=== PATIENT | male | born 1955 | race African-American/Black ===

== ENCOUNTER 2017-07-19 14:23 | Inpatient (IN) | payer MEDICARE, OTHER ==
--- NOTE | 2017-07-19 14:42 | ED Physician Chart ---
ED Chief Complaint/HPI - Patient Information Date Seen:: 07/19/17 Time Seen:: 14:30 Chief Complaint:: Agitation History of Present Illness:: onset x 3 days of agitation and aggressive behavior; no report of trauma, SIs, H /As, S/T, neck pain, C/P, SOB, Abd. pain, A/N/V/D/C, fever, chills, or urinary s /s Allergies:: Allergies Allergy/AdvReac Type Severity Reaction Status Date / Time No Known Allergies Allergy Verified 07/19/17 14:31 Vitals:: Vital Signs - 8 hr 07/19/17 14:31 Temp 98.3 F HR 83 RR 18 BP 141/73 O2 Sat % 100 Historian:: Patient, EMS Review:: Nurse's Note Reviewed, Old Chart Reviewed, EMS run form Reviewed ED Review of Systems - Review of Systems General/Constitutional: No fever, No chills, No weight loss, No weakness, No diaphoresis, No edema, No loss of appetite Skin: No skin lesions, No rash, No bruising Head: No headache, No light-headedness Eyes: No loss of vision, No pain, No diplopia ENT: No earache, No nasal drainage, No sore throat, No tinnitus Neck: No neck pain, No swelling, No thyromegaly, No stiffness, No mass noted Cardio Vascular: No chest pain, No palpitations, No PND, No orthopnea, No edema Pulmonary: No SOB, No cough, No sputum, No wheezing GI: No nausea, No vomiting, No diarrhea, No pain, No melena, No hematochezia, No constipation, No hematemesis G/U: No dysuria, No frequency, No hematuria, No nacturia Musculoskeletal: No bone or joint pain, No back pain, No muscle pain Endocrine: No polyuria, No polydipsia Psychiatric: Prior psych history, Depression, Anxiety, No suicidal ideation, No homicidal ideation, No auditory hallucination, No visual hallucination Hematopoietic: No bruising, No lymphadenopathy Allergic/Immuno: No urticaria, No angioedema Neurological: No syncope, No focal symptoms, No weakness, No paresthesia, No headache, No seizure, No dizziness, No confusion, No vertigo ED Past Medical History - Past Medical History Obtainable: Yes Past Medical History: HTN, Dyslipidemia Family History: HTN Social History: Non Smoker, No Alcohol, No Drug Use, Single, Care Facility Surgical History: None Psychiatricy History: Depression, Bipolar Medication: Reviewed Family Medical History - Family Member Mother History Unknown: Yes ED Physical Exam - Physical Examination General/Constitutional: Awake, Well-developed, well-nourished, Alert, No distress, GCS 15, Non-toxic appearing, Ambulatory Head: Atraumatic Eyes: Lids, conjuctiva normal, PERRL, EOMI Skin: Nl inspection, No rash, No skin lesions, No ecchymosis, Well hydrated, No lymphadenopathy ENMT: External ears, nose nl, TM canals nl, Nasal exam nl, Lips, teeth, gums nl , Oropharynx nl, Tonsils nl Neck: Nontender, Full ROM w/o pain, No JVD, No nuchal rigidity, No bruit, No mass, No stridor Respiratory: Nl effort/Exclusion, Clear to Auscultation, No Wheeze/Rhonchi/Rales Cardio Vascular: RRR, No murmur, gallop, rubs, NL S1 S2, Carotid/Femoral/Distal pulses equal bilaterally GI: No tenderness/rebounding/guarding, No organomegaly, No hernia, Normal BS's, Nondistended, No mass/bruits, No McBurney tenderness : No CVA tenderness Extremities: No tenderness or effusion, Full ROM, normal strength in all extremities, No edema, Normal digits & nails Neuro/Psych: Alert/oriented, DTR's symmetric, Normal sensory exam, Normal motor strength, Judgement/insight normal, Mood normal, Normal gait, No focal deficits Other Neuro/Psych comments:: + Psychomotor Agitation; Mood/Affect: Labile; no SIs Misc: Normal back, No paraspinal tenderness ED Labs/Radiology/EKG Results - Lab Results Comments:: + Anemia; otherwise unremarkable - EKG Interpretations EKG Time:: 14:54 Rate & Rhythm: 79; NSR Comments:: LVH; non-specific st-t changes ED Septic Shock - . Is Septic Shock (SBP<90, OR Lactate>4 mmol\L) present?: No - <6hrs of presentation: Vital Signs: Vital Signs - 8 hr 07/19/17 14:31 Temp 98.3 F HR 83 RR 18 BP 141/73 O2 Sat % 100 ED Reassessment (Disposition) - Reassessment Reassessment Condition:: Improved - Diagnosis Diagnosis:: Dx: Agitation; Psychosis; Anemia; Medical Clearance; Bipolar Disorder - Aftercare/Follow up Instructions Aftercare/Follow-Up Instructions:: Counseled pt regarding lab results/diagnosis & need follow up, Counseled pt & family regarding lab results/diagnosis & need follow up - Patient Disposition Discharge/Transfer:: Acute Care w/in this hosp Admitted to:: [facility] Condition at Disposition:: Stable, Improved
[2017-07-19 14:59] LABS: % BASOPHILS 0.5 % (0.0-2.0); % EOSINOPHILS 0.5 % (0.0-5.0); % LYMPHOCYTES 20.7 % (20.0-50.0); % MONOCYTES 14.9 % (2.0-10.0); % NEUTROPHILS 63.4 % (40.0-80.0); HEMOGLOBIN 9.2 gm/dL (12-16); LYMPHOCYTE ABSOLUTE 1.2 Th/cmm (1.5-3.0); MEAN CELL VOLUME 88.7 fl (80-99); MEAN CORPUSCULAR HGB CONC 32.7 pg (28.0-36.0); MEAN PLATELET VOLUME 6.7 fl; MONOCYTE ABSOLUTE 0.8 Th/cmm (0.3-1.0); NEUTROPHILE ABSOLUTE 3.7 Th/cmm (1.8-8.0); PLATELET COUNT 321 Th/cmm (150-400); RED BLOOD COUNT 3.16 Mil/cmm (4.30-5.70); RED CELL DISTRIBUTION WIDTH 14.3 % (11.5-20.0); WHITE BLOOD COUNT 5.7 Th/cmm (4.8-10.8)
[2017-07-19 15:21] LABS: ACETAMINOPHEN < 10.0 ug/mL (10.0-30.0); ALB/GLOB RATIO 0.9 (1.0-1.8); ALBUMIN 3.2 gm/dL (4.2-5.5); ALKALINE PHOSPHATASE 138 U/L (34-104); ANION GAP 9.7 (7.0-16.0); BILIRUBIN,TOTAL 0.3 mg/dL (0.3-1.0); BUN - UREA NITROGEN 15 mg/dL (7-25); CALCIUM SERUM 9.1 mg/dL (8.6-10.3); CARBON DIOXIDE 30.1 mEq/L (21.0-31.0); CHLORIDE 102 mEq/L (98-107); CHOLESTEROL 157 mg/dL (<200); CREATININE - SERUM 0.6 mg/dL (0.7-1.3); GFR AFRICAN-AMERICAN > 60.0 ml/min (>90); GFR NON AFRICAN-AMERICAN > 60.0 ml/min; GLUCOSE 79 mg/dL (70-105); HDL -HIGH DENSITY LIPOPROTEIN 59 mg/dL (23-92); POTASSIUM SERUM 3.8 mEq/L (3.5-5.1); SGOT 14 U/L (13-39); SGPT/ALT 22 U/L (7-52); SODIUM SERUM 138 mEq/L (136-145); TOTAL PROTEIN,SERUM 6.7 gm/dL (6.0-8.3); TRIGLYCERIDES 78 mg/dL (<150)
[2017-07-19 15:25] LABS: SALICYLATES (ASPIRIN) < 25.0 mg/L (30.0-100.0)
[2017-07-19 16:12] LABS: A1C % 11.7 % (4.0-6.0)
[2017-07-19 16:49] LABS: URINE MICROSCOPIC INDICATED? YES; URINE SOURCE CLEAN C
[2017-07-19 16:53] LABS: URINE BILIRUBIN NEGATIVE (NEGATIVE); URINE BLOOD NEGATIVE (NEGATIVE); URINE GLUCOSE (UA) 500 mg/dL (NEGATIVE); URINE KETONE NEGATIVE (NEGATIVE); URINE LEUKOCYTE ESTERASE NEGATIVE (NEGATIVE); URINE NITRATE NEGATIVE (NEGATIVE); URINE PROTEIN NEGATIVE (NEGATIVE); URINE UROBILINOGEN 0.2 E.U./dL (0.2 - 1.0)
[2017-07-19 17:01] LABS: URINE CLARITY CLEAR (CLEAR); URINE COLOR YELLOW
[2017-07-19 17:04] LABS: URINE BACTERIA NONE SEEN /hpf (NONE SEEN); URINE EPITHELIAL CELLS NONE SEEN /lpf (FEW); URINE RBC NONE SEEN /hpf (0-5); URINE WBC NONE SEEN /hpf (0-5)
[2017-07-19 17:12] LABS: AMPHETAMINE URINE NEGATIVE (NEGATIVE); BARBITURATES URINE NEGATIVE (NEGATIVE); CANNABINOID THC NEGATIVE (NEGATIVE); COCAINE METABOLITE QUAL URINE NEGATIVE (NEGATIVE); METHADONE URINE NEGATIVE (NEGATIVE); METHAMPHETAMINES QUAL URINE NEGATIVE (NEGATIVE); OPIATES (MORPHINE) QUAL. URINE NEGATIVE (NEGATIVE); PHENCYCLIDINE (PCP) URINE NEGATIVE (NEGATIVE); TRICYCLICS (TCA) QUAL. URINE NEGATIVE (NEGATIVE)
[2017-07-19 17:13] LABS: BENZODIAZEPINES QUAL URINE POSITIVE (NEGATIVE)
[2017-07-19 18:07] VITALS: BP 127/68
[2017-07-19] MEDS ORDERED: Magnesium Hydroxide (MOM) 30 mL UDC PO PRN (20:25)
[2017-07-19] MEDS: Insulin Detemir 100 units/mL 10mL Vial SUBQ SCH (21:23)
[2017-07-20] MEDS: INSULIN HUMAN ISOPHANE (NPH) 100 UNITS/ML SUBQ SCH (06:42)
--- NOTE | 2017-07-20 21:09 | Psychosocial Evaluation ---
DATE OF SERVICE: 07/20/2017 CHIEF COMPLAINT: Psychotic illness. HISTORY OF PRESENT ILLNESS: The patient is a 62-year-old male who was sent from his facility for increased agitation, anger outburst, started to have more yelling episodes for the past 3-4 days, difficult to redirect. The patient was evaluated in the ER and admitted now currently on psychiatric unit. The patient was asking about food and said sometimes does not like the food. The patient was apparently threatening to kill people, said people do not bother him and he wants to be left alone. The patient talked about being in a board and care for many years and now is in a long term facility. He said he is not sure if he likes that place. PAST PSYCHIATRIC HISTORY: Multiple hospitalizations, history of schizophrenia. PAST MEDICAL HISTORY: Medically cleared in the ER. PSYCHOSOCIAL HISTORY: The patient resides at [facility] and he requires complete care. MENTAL STATUS EXAMINATION: The patient is slightly disheveled, dressed in a hospital gown. His speech is monotonous, loud at times. Affect is dysphoric, irritable. The patient appears to be paranoid, suspicious. Insight poor. Judgment is impaired. He is oriented to person being in the hospital, not sure about his age. He thought he was 61-year-old. Did not know the time. The patient's strengths: The patient is passively accepting treatment. The patient's weakness is lack of insight. ASSESSMENT: Schizophrenia, paranoid type, acute exacerbation. MEDICAL: As per medical history, stress is severe. PLAN: We will admit the patient for hospitalization. We will start individual and group therapy to assess psychopharmacological intervention. ESTIMATED LENGTH OF STAY: 7-10 days. CRITERIA FOR DISCHARGE: Improved condition. No agitation or aggressive behavior and safe disposition, outpatient treatment plan. JOB# [id number]
[2017-07-20] MEDS: Insulin Detemir 100 units/mL 10mL Vial SUBQ SCH (22:01)
[2017-07-20] MEDS ORDERED: INSULIN ASPART SLIDING SCALE 100 UNITS/ML UNIT SUBQ SCH (22:28)
[2017-07-21] MEDS: INSULIN ASPART SLIDING SCALE 100 UNITS/ML UNIT SUBQ SCH ×4 (07:15→21:34)
[2017-07-21] MEDS ORDERED: INSULIN ASPART SLIDING SCALE 100 UNITS/ML UNIT SUBQ SCH (07:30)
[2017-07-21] MEDS: INSULIN HUMAN ISOPHANE (NPH) 100 UNITS/ML SUBQ SCH (08:37)
--- NOTE | 2017-07-21 17:42 | Progress Notes ---
DATE: 07/21/2017 SUBJECTIVE: Staff was spoken to. The patient is interviewed. Mood is noted to be irritable. Affect is constricted. Insight and judgment is noted to be still impaired. Impulse control is poor. The patient is disheveled and pacing most of the time in the unit. The patient has finished his lunch, but still complains that he has not been fed and patient wants more and more medications. ASSESSMENT: The patient is still impulsive and psychotic. PLAN: To continue the patient with the supportive therapy and I encouraged the patient to verbalize the concerns rather than to act out. JOB# [id number]
[2017-07-21] MEDS ORDERED: INSULIN GLARGINE RECOMBINAN SUBQ SCH (21:00)
[2017-07-21] MEDS: Insulin Detemir 100 units/mL 10mL Vial SUBQ SCH (21:36)
--- NOTE | 2017-07-22 01:47 | Consultation ---
DATE OF CONSULTATION: 07/21/2017 REFERRING PHYSICIAN: Rinku Blackman MD TYPE OF CONSULTATION: Psychology. HISTORY OF PRESENT ILLNESS: The patient is a 62-year-old -[place] male. The patient is being admitted due to increased agitation as well as anger outbursts. The following is by record review and by the patient's self report. According to record review, the staff at the patient's facility report that he has had multiple yelling episodes for approximately 3-4 days and is difficult to redirect or contain. The patient apparently has been threatening to kill people and wants to be left alone. The patient stated that he has been in a board and care for many years and does not want to be in a long term. The patient appears to be confused and disoriented. The patient denied any suicidal ideation, plan or intention. The patient was unable to contract for safety with respect to homicidal ideation, plan or intention. PAST MEDICAL HISTORY: Please see history and physical. PAST PSYCHIATRIC HISTORY: The patient has a history of multiple hospitalizations. The patient also has a history of schizophrenia, chronic paranoid type. SUBSTANCE ABUSE HISTORY: The patient did not answer this question. PSYCHOSOCIAL HISTORY: The patient is a resident of [facility]. The patient did not answer questions about occupational or educational history or yarsanism affiliation. The patient did not answer questions about history of physical or sexual abuse. The patient did not answer questions about current legal problems. The patient did not answer questions about family support or family relationships. MENTAL STATUS EXAMINATION: The patient appears older than his stated age. The patient's attitude is guarded, but somewhat confused. The patient's eye contact seems to be blank. The patient is staring directly at this senior grant writer with no expression during the clinical interview. Speech is slow and delayed and mumbling. Mood is apathetic. Affect is blunted and appears almost catatonic. The patient 's mood is depressed and somewhat irritable. There seems to be paranoid ideation present. The patient denied any auditory or visual hallucinations. The patient denied any suicidal ideation. The patient's behavior has been difficult to redirect. The staff on the unit states the patient is pacing the unit and wandering into other patient's rooms and needs constant redirection. The patient's sensorium is alert to self and place only. The patient's impulse control is impaired. Concentration is impaired. The patient did not participate in the memory assessment. Immediate and short term memory appear to be impaired. Long-term memory needs further evaluation. The patient was unable to give his correct age and date of . The patient did not participate in the interpretation of proverbs or the rest of the clinical interview. Insight is impaired. Judgment is impaired. DIAGNOSTIC IMPRESSION: AXIS I: History of schizophrenia, chronic paranoid type, in acute exacerbation. AXIS II: Deferred. AXIS III: Please see history and physical. TREATMENT PLAN: The patient has been seen by Dr. Blackman for psychiatric evaluation and for the management of the patient's psychotropic medications. We will start individual and group therapy to include supportive psychotherapy and motivational enhancement for the patient to become compliant and stay compliant with all aspects of his care and treatment. We will provide behavioral management with respect to the patient's agitation and aggressive behavior. We will encourage the patient to demonstrate emotional and self-regulation prior to discharge. We will provide reality orientation, reality differentiation and reality integration. We will provide coping strategies for chronic long-term mental illness as well as for phase of life issues and adjustment to placement because the patient has a desire to return to a board and care. We will consult with social sciences instructor with respect to the patient's desire to return to that type of environment. We will provide opportunities daily for the patient to verbally contract for safety and no harm to others. Thank you, Dr. Blackman for this consult and the opportunity to participate with you in this patient's care. JOB# [id number] CHELI
[2017-07-22] MEDS ORDERED: Maalox 30 mL Cup PO PRN (07:15)
[2017-07-22] MEDS: INSULIN ASPART SLIDING SCALE 100 UNITS/ML UNIT SUBQ SCH ×4 (07:48→20:42)
[2017-07-22] MEDS: INSULIN HUMAN ISOPHANE (NPH) 100 UNITS/ML SUBQ SCH (07:48)
--- NOTE | 2017-07-22 12:49 | Progress Notes ---
DATE: 07/21/2017 SUBJECTIVE: The patient is asleep. The patient has no other complaints. The patient is in Geropsych Unit. PHYSICAL EXAMINATION: VITAL SIGNS: Temperature 98.2, pulse 90, blood pressure 135/76, respiration 20, O2 sat 98% on room air. CARDIOVASCULAR: S1 and S2 is clear. RESPIRATORY: Clear. LABORATORY DATA: No labs for today. ASSESSMENT: 1. Psychosis. 2. Anemia. 4. Diabetes mellitus, controlled. 5. Depression and bipolar disorder. PLAN: Continue current medications. Further per consult. JOB# [id number] MTDD
--- NOTE | 2017-07-22 12:49 | History & Physical ---
ADMIT DATE: 07/19/2017 CHIEF COMPLAINT: Agitated. HISTORY OF PRESENT ILLNESS: The patient is a male who has possible 3 days of agitation and aggressive behavior. The patient was transferred to [facility] for further evaluation. PAST MEDICAL HISTORY: Hypertension, dyslipidemia, depression, bipolar disorder. PAST SURGICAL HISTORY: Negative. MEDICATIONS: See MAR. ALLERGIES: No known allergies. SOCIAL HISTORY: No reports of smoking or drug use. The patient is a resident of care home facility. PHYSICAL EXAMINATION: GENERAL: The patient is awake, nontoxic in appearance. VITAL SIGNS: On admission, temperature 98.3, pulse 83, blood pressure 140/73, respiratory rate 18, O2 sat 100% on room air. HEENT: Normocephalic, atraumatic. Extraocular movements intact. Oropharynx clear. NECK: Supple, no thyromegaly. CARDIOVASCULAR: S1, S2 RESPIRATORY: Clear. No wheezes or rhonchi. GASTROINTESTINAL: Soft, nontender. Bowel sounds are present. GENITOURINARY: No CVA tenderness or suprapubic tenderness. BACK: No midline tenderness. EXTREMITIES: Equal pulses bilaterally. SKIN: Negative. NEUROLOGIC: Intact. Extraocular movements are intact. Sensation intact. Neurovascular is intact. Bilateral muscle strengths equal. PSYCHIATRIC: Psychomotor agitation. LABORATORY DATA: Labs on admission, Hematology: WBC 5.7, hemoglobin 11.2 and hematocrit 28.0, platelet count of 161, 40% monocytes. Chemistry: Sodium 138, potassium 3.8, chloride 102, bicarbonate 28, anion gap 7.7, BUN 15, creatinine 0.6, GFR 160, glucose 79. Hemoglobin A1c per labs, calcium 9.1, total bilirubin 0.3, AST is 14, ALT 22, alkaline phosphatase is 138, total protein 7.7, albumin 3.2, globulin 3.5, glucose 78, cholesterol 157, LDL of 93, HDL 59 Urinalysis shows glucose. Urine drug screen positive for benzodiazepines Alcohol less than 10. RPR nonreactive. IMPRESSION: 1. Agitation. 2. Psychosis. 3. Anemia. 4. Diabetes mellitus, controlled. 6. obese. 7. Hypertension. 8. Dyslipidemia. 9. Depression. 10. Bipolar disorder. PLAN: The patient admitted to Geropsychiatric unit at [facility]. We will obtain psychology evaluation. Further consult. JOB# [id number] [facility]
[2017-07-22] MEDS ORDERED: Haloperidol Lactate 5 mg/mL 1mL Vial ONE (13:48)
[2017-07-22] MEDS ORDERED: Haloperidol Lactate 5 mg/mL 1mL Vial IM STA (13:48)
--- NOTE | 2017-07-22 14:07 | Progress Notes ---
DATE: 07/22/2017 SUBJECTIVE: Staff was spoken to. The patient is interviewed. Mood is noted to be irritable. Affect is constricted. Insight and judgment at this time are noted to be still impaired. The patient is pacing on the unit constantly and is stating that he is hungry, he needs to be on more and more of the medication, also, the food. The patient has no insight into his illness. The patient is grossly psychotic and he is responding to internal stimuli and hence it is decided to increase the dose on the risperidone to 2 mg and follow the patient with the supportive therapy. The patient is not ready to be discharged to a lower level of care because of his psychosis. JOB# [id number]
[2017-07-22] MEDS: Insulin Detemir 100 units/mL 10mL Vial SUBQ SCH (20:43)
[2017-07-23] MEDS: INSULIN ASPART SLIDING SCALE 100 UNITS/ML UNIT SUBQ SCH ×4 (07:12→20:22)
[2017-07-23] MEDS: INSULIN HUMAN ISOPHANE (NPH) 100 UNITS/ML SUBQ SCH (08:49)
[2017-07-23] MEDS: Insulin Detemir 100 units/mL 10mL Vial SUBQ SCH (20:24)
--- NOTE | 2017-07-23 23:55 | Progress Notes ---
DATE: 07/22/2017 SUBJECTIVE: The patient is awake. The patient is in Geropsych Unit at [facility]. The patient's mood is irritable. The patient's affect is constricted. The patient's insight and judgment are noticed to be still impaired. The patient is still grossly psychotic. The patient's risperidone has been increased to 2 mg. PHYSICAL EXAMINATION: VITAL SIGNS: Temperature 98, pulse 99, blood pressure 120/72, respiration 20, O2 98% on room air. CARDIOVASCULAR: S1 and S2. RESPIRATORY: Clear. GASTROINTESTINAL: Soft. Positive bowel sounds. LABORATORY DATA: No labs for today. MICROBIOLOGY: MRSA screening from 07/19/2017 was negative. ASSESSMENT: 1. History of schizophrenia, chronic paranoid type with acute exacerbation. 2. Hypertension. 3. Dyslipidemia. 4. Diabetes mellitus. 5. Obesity. PLAN: Continue medication. The patient is refusing labs. Further recommendation as per consults. JOB# [id number]
--- NOTE | 2017-07-24 00:22 | Progress Notes ---
DATE: 07/23/2017 SUBJECTIVE: Staff was spoken to. The patient is interviewed. Mood is noted to be irritable. Affect is constricted. The patient has been getting into other people's rooms. The patient needs to be redirected. The patient is currently on 2 mg twice a day of the risperidone and has been able to tolerate the medications. This medication was just increased yesterday and will be closely monitoring the patient with this medication. PLAN: I encouraged the patient to verbalize the concerns rather than to act out. The patient is not ready to be discharged in view of his acute psychosis. JOB# [id number]
--- NOTE | 2017-07-24 00:33 | Progress Notes ---
DATE: 07/23/2017 SUBJECTIVE: The patient is awake. The patient is still in Geropsych Unit. Upon psychiatric evaluation, the patient is still grossly psychotic. PHYSICAL EXAMINATION: VITAL SIGNS: Temperature 97.5, pulse 90, blood pressure 112/59, respirations 20, O2 sat was 98% on room air. CARDIOVASCULAR: S1 and S2. RESPIRATORY: Clear. GASTROINTESTINAL: Soft. Positive bowel sounds. LABORATORY DATA: Labs, fasting glucose 312. ASSESSMENT: 1. Schizophrenia, paranoid type with acute exacerbation. 2. Hypertension. 3. Dyslipidemia. 4. Diabetes mellitus. PLAN: Continue medication. We will attempt to obtain labs again tomorrow. Further recommendations per psychiatric services. JOB# [id number]
[2017-07-24] MEDS: INSULIN ASPART SLIDING SCALE 100 UNITS/ML UNIT SUBQ SCH ×4 (06:31→20:20)
[2017-07-24] MEDS: INSULIN HUMAN ISOPHANE (NPH) 100 UNITS/ML SUBQ SCH (06:32)
[2017-07-24 06:51] LABS: % BASOPHILS 0.4 % (0.0-2.0); % EOSINOPHILS 0.7 % (0.0-5.0); % NEUTROPHILS 60.9 % (40.0-80.0); HEMATOCRIT 27.7 % (41.0-60); HEMOGLOBIN 9.4 gm/dL (12-16); LYMPHOCYTE ABSOLUTE 1.5 Th/cmm (1.5-3.0); MEAN CELL VOLUME 88.3 fl (80-99); MEAN CORPUSCULAR HEMOGLOBIN 29.9 pg (26.0-30.0); MEAN CORPUSCULAR HGB CONC 33.9 pg (28.0-36.0); MONOCYTE ABSOLUTE 0.8 Th/cmm (0.3-1.0); NEUTROPHILE ABSOLUTE 3.6 Th/cmm (1.8-8.0); PLATELET COUNT 361 Th/cmm (150-400); RED BLOOD COUNT 3.14 Mil/cmm (4.30-5.70); RED CELL DISTRIBUTION WIDTH 14.3 % (11.5-20.0); WHITE BLOOD COUNT 5.9 Th/cmm (4.8-10.8)
[2017-07-24 07:25] LABS: ANION GAP 10.3 (7.0-16.0); BUN - UREA NITROGEN 14 mg/dL (7-25); CALCIUM SERUM 9.1 mg/dL (8.6-10.3); CARBON DIOXIDE 27.9 mEq/L (21.0-31.0); CHLORIDE 99 mEq/L (98-107); CREATININE - SERUM 0.7 mg/dL (0.7-1.3); GFR AFRICAN-AMERICAN > 60.0 ml/min (>90); GFR NON AFRICAN-AMERICAN > 60.0 ml/min; POTASSIUM SERUM 4.2 mEq/L (3.5-5.1); SODIUM SERUM 133 mEq/L (136-145)
[2017-07-24 09:10] LABS: GLUCOSE 293 mg/dL (70-105)
--- NOTE | 2017-07-24 14:11 | Progress Notes ---
DATE: 07/24/2017 SUBJECTIVE: The patient is still in the Geropsych Unit. Per Psychiatry, the patient is still irritable. The patient's affect is constricted. The patient is still agitated. OBJECTIVE: VITAL SIGNS: Temperature is 97.6, pulse 80, and blood pressure 135/70. CARDIOVASCULAR: S1, S2. LUNGS: Clear. ABDOMEN: Soft. Positive bowel sounds. LABORATORY DATA: Hematology: WBC 5.9, hemoglobin 9.4, hematocrit 27.7, platelet count 361, 13% monocytes. Chemistry: Sodium 133, potassium 4.2, chloride 109, bicarbonate per labs, BUN 14, creatinine 0.7. GFR is more than 60. Glucose is 293. ASSESSMENT: 1. Anemia. 2. Hyponatremia. 3. Hyperglycemia. 4. Schizophrenia, paranoid type, with exacerbation. 5. Hypertension. 6. Dyslipidemia. 7. Diabetes mellitus. PLAN: Continue medication. Further recommendation per Psychiatry. We will repeat labs on Wednesday. JOB# [id number] MTDDeborah
--- NOTE | 2017-07-24 17:43 | Progress Notes ---
DATE: 07/24/2017 SUBJECTIVE: Staff was spoken to. The patient is interviewed. Mood is noted to be irritable. Affect is constricted. The patient is very paranoid and has been going on a tangent. The patient's insight and judgment at this time are noted to be very much impaired. The patient is demanding that he should be discharged to a board and care. The patient has been very intrusive at this time and is not able to contract for safety. The bottle caser has been working with the patient looking for placement. ASSESSMENT: The patient is still impulsive. PLAN: To continue the patient with the supportive therapy and increase the dose on the Risperdal to 3 mg b.i.d. and follow the patient with the supportive therapy. Please note that the patient is out of control and could not be discharged to a lower level of care yet. JOB# [id number]
[2017-07-24] MEDS ORDERED: INSULIN ASPART, RECOMBINANT 100 UNITS/ML SUBQ ONE (18:02)
[2017-07-24] MEDS ORDERED: Insulin Detemir 100 units/mL 10mL Vial SUBQ SCH (21:00)
[2017-07-25] MEDS: INSULIN ASPART SLIDING SCALE 100 UNITS/ML UNIT SUBQ SCH ×4 (06:33→20:36)
[2017-07-25] MEDS: INSULIN HUMAN ISOPHANE (NPH) 100 UNITS/ML SUBQ SCH (06:34)
--- NOTE | 2017-07-25 19:36 | Progress Notes ---
DATE: 07/25/2017 SUBJECTIVE: Staff was spoken to. The patient is interviewed. Mood is noted to be irritable. Affect is constricted. Insight and judgment are noted to be still impaired. Impulse control is noted to be limited. The patient has paranoid delusions and is demanding that he should be discharged to a board and care. The patient has no place to return to at this time. ASSESSMENT: The patient is still very paranoid and is not able to contract for safety. PLAN: To continue the patient with the current medications and I encouraged the patient to verbalize the concerns rather than to act out. JOB# [id number]
[2017-07-25] MEDS: Insulin Detemir 100 units/mL 10mL Vial SUBQ SCH (20:33)
--- NOTE | 2017-07-25 22:25 | Progress Notes ---
DATE: 07/19/2017 SUBJECTIVE: The patient is awake, alert. The patient is in Geropsych Unit. Per psychiatry, the patient still is impulsive. The patient's Risperdal has been increased. OBJECTIVE: VITAL SIGNS: Temperature 97.7, pulse of 101, blood pressure 147/68, Oxygen sat 100% on room air. CARDIOVASCULAR: S1 and S2. RESPIRATORY: Clear. ABDOMEN: Soft. Positive bowel sounds. LABORATORY DATA: No labs for today. ASSESSMENT: 1. Hyperglycemia. 2. Schizophrenia, paranoid type, increased aggression. 3. Hypertension 4. Diabetes mellitus. PLAN: Continue current medication. Further recommendation per Psychiatry. We will repeat labs tomorrow. JOB# [id number] MTDDeborah
[2017-07-26] MEDS: INSULIN HUMAN ISOPHANE (NPH) 100 UNITS/ML SUBQ SCH (06:32)
[2017-07-26] MEDS: INSULIN ASPART SLIDING SCALE 100 UNITS/ML UNIT SUBQ SCH ×4 (06:33→20:23)
[2017-07-26 08:06] LABS: % BASOPHILS 0.3 % (0.0-2.0); % EOSINOPHILS 0.6 % (0.0-5.0); % LYMPHOCYTES 32.6 % (20.0-50.0); % MONOCYTES 12.9 % (2.0-10.0); % NEUTROPHILS 53.6 % (40.0-80.0); HEMATOCRIT 29.8 % (41.0-60); HEMOGLOBIN 10.4 gm/dL (12-16); LYMPHOCYTE ABSOLUTE 2.6 Th/cmm (1.5-3.0); MEAN CELL VOLUME 89.1 fl (80-99); MEAN CORPUSCULAR HEMOGLOBIN 30.9 pg (26.0-30.0); MEAN CORPUSCULAR HGB CONC 34.7 pg (28.0-36.0); MEAN PLATELET VOLUME 6.9 fl; NEUTROPHILE ABSOLUTE 4.3 Th/cmm (1.8-8.0); PLATELET COUNT 380 Th/cmm (150-400); RED BLOOD COUNT 3.35 Mil/cmm (4.30-5.70); RED CELL DISTRIBUTION WIDTH 14.9 % (11.5-20.0); WHITE BLOOD COUNT 7.9 Th/cmm (4.8-10.8)
[2017-07-26 08:20] LABS: ANION GAP 11.5 (7.0-16.0); BUN - UREA NITROGEN 14 mg/dL (7-25); CALCIUM SERUM 9.7 mg/dL (8.6-10.3); CARBON DIOXIDE 28.9 mEq/L (21.0-31.0); CHLORIDE 99 mEq/L (98-107); CREATININE - SERUM 0.7 mg/dL (0.7-1.3); GFR AFRICAN-AMERICAN > 60.0 ml/min (>90); GFR NON AFRICAN-AMERICAN > 60.0 ml/min; GLUCOSE 60 mg/dL (70-105); POTASSIUM SERUM 3.4 mEq/L (3.5-5.1); SODIUM SERUM 136 mEq/L (136-145)
[2017-07-26] MEDS ORDERED: Potassium Chloride 20 mEq ER Tab PO ONE (10:38)
--- NOTE | 2017-07-26 17:09 | Progress Notes ---
DATE: 07/26/2017 SUBJECTIVE: Staff was spoken to. The patient is interviewed. Mood is noted to be dysphoric. The patient is pacing on the unit. Insight and judgment at this time are noted to be very much impaired. Impulse control seems to be limited. The patient is very intrusive and is stating that he needs to go to a board and care. The patient is noted to have a shuffling gait and the patient is presenting with the EPS and hence it is decided to start the patient on Cogentin, which is going to be given at 1 mg twice a day and followup. The patient is going to be followed up with supportive therapy. ASSESSMENT: The patient is having EPS. PLAN: To continue the patient with the supportive therapy, encouraged the patient to verbalize the concerns rather than to act out. Paranoia is there, but the patient is not presenting with any command hallucinations. JOB# [id number]
[2017-07-26] MEDS: Insulin Detemir 100 units/mL 10mL Vial SUBQ SCH (20:22)
--- NOTE | 2017-07-26 23:29 | Progress Notes ---
DATE: 07/26/2017 SUBJECTIVE: The patient is awake. The patient is still in Geropsych Unit. Per Psychiatry, the patient is still paranoid. PHYSICAL EXAMINATION: VITAL SIGNS: Temperature is 98, pulse of 99, blood pressure of 108/78, respiratory rate 20, O2 99% on room air. CARDIOVASCULAR: S1 and S2. RESPIRATORY: Clear. GASTROINTESTINAL: Soft. Positive bowel sounds. LABORATORY DATA: Hematology: WBC 7.9, hemoglobin 10.4, hematocrit 29.8 platelet count 380 and 12% monocytes. Chemistry: Sodium is 136, potassium per labs, chloride 90, bicarbonate 28, anion gap 11, BUN 14, creatinine 0.7. GFR is more than 60, glucose is 60, calcium 9.7. MICROBIOLOGY: MRSA screening 07/19/2017 negative. RADIOLOGY: No results ASSESSMENT: 1. Anemia. 2. Hyperkalemia. 3. Schizophrenia, paranoid type (acute exacerbation). 4. Hypertension. 5. Diabetes mellitus. PLAN: Continue medication. We will correct potassium deficiency. Further recommendation per Psychiatry. We will repeat labs on Wednesday. JOB# [id number] MTDD
[2017-07-27] MEDS: INSULIN ASPART SLIDING SCALE 100 UNITS/ML UNIT SUBQ SCH ×4 (06:40→22:20)
[2017-07-27] MEDS: INSULIN HUMAN ISOPHANE (NPH) 100 UNITS/ML SUBQ SCH (06:54)
--- NOTE | 2017-07-27 21:45 | Progress Notes ---
DATE: 07/27/2017 SUBJECTIVE: Staff was spoken to. The patient is interviewed. Mood is noted to be irritable. Affect is constricted. The patient is ____ stating that he needs to be in a board and care and he cannot be here. The patient's coping skills are noted to be poor. The patient has been pacing most of the time on the unit. Insight and judgment at this time are noted to be impaired. The patient has paranoid delusions, but denies any command hallucinations. Currently, the patient is on 3 mg twice a day of the Risperdal and has been able to tolerate the medications. In view of the patient's EPS, the patient has been placed on the Cogentin 0.5 mg twice a day and the patient is being closely monitored. ASSESSMENT: The patient is still psychotic. PLAN: To continue the patient with the current medications and I encouraged the patient to verbalize the concerns rather than to act out. JOB# [id number]
[2017-07-27] MEDS: Insulin Detemir 100 units/mL 10mL Vial SUBQ SCH (22:21)
[2017-07-28] MEDS: INSULIN ASPART SLIDING SCALE 100 UNITS/ML UNIT SUBQ SCH ×4 (06:36→21:25)
[2017-07-28] MEDS: INSULIN HUMAN ISOPHANE (NPH) 100 UNITS/ML SUBQ SCH (06:37)
[2017-07-28] MEDS: Insulin Detemir 100 units/mL 10mL Vial SUBQ SCH (21:28)
--- NOTE | 2017-07-29 00:22 | Progress Notes ---
DATE: 07/28/2017 PSYCHIATRIC PROGRESS NOTE SUBJECTIVE: Staff was spoken to. The patient is interviewed. Mood is noted to be irritable. Affect is constricted. Insight and judgment at this time are noted to be impaired. Impulse control is noted to be poor. The patient is getting easily agitated and pacing most of the time on the unit. The patient has been getting into the nurses' station and has been getting upset that he is not getting out. The patient has no insight into his illness. ASSESSMENT: The patient is still impulsive. PLAN: To add a low dose of the Depakote in addition to the current antipsychotic medications. I encouraged the patient to verbalize the concerns rather than to act out. The patient is not ready to be discharged in view of his impulsivity at this time. Plan is to continue the patient with the Risperdal and add the Depakote and follow the patient with the supportive therapy. JOB# [id number]
[2017-07-29] MEDS: INSULIN ASPART SLIDING SCALE 100 UNITS/ML UNIT SUBQ SCH ×4 (06:30→20:15)
[2017-07-29] MEDS: INSULIN HUMAN ISOPHANE (NPH) 100 UNITS/ML SUBQ SCH (07:30)
[2017-07-29] MEDS: Insulin Detemir 100 units/mL 10mL Vial SUBQ SCH (20:24)
--- NOTE | 2017-07-30 03:03 | Progress Notes ---
DATE: 07/27/2017 SUBJECTIVE: The patient is awake. The patient is still in Geropsych Unit. OBJECTIVE: CARDIOVASCULAR: S1 and S2. RESPIRATORY: Clear. NECK: Supple. ASSESSMENT: 1. Anemia. 2. Schizophrenia. 3. Hypertension. 4. Diabetes mellitus. 5. Hyperglycemia. Plan: Continue current treatment. Further per consultants. JOB# [id number] MTDDeborah
--- NOTE | 2017-07-30 03:16 | Progress Notes ---
DATE: 07/29/2017 SUBJECTIVE: The patient is awake. The patient is still in Geropsych Unit. The patient still agitated. OBJECTIVE: VITAL SIGNS: Same. CARDIOVASCULAR: S1 and S2. RESPIRATORY: Clear. ABDOMEN: Soft. Positive bowel sounds. ASSESSMENT: 1. Schizophrenia. 2. Diabetes mellitus. 3. Hypertension. PLAN: Continue current medication. Obtain labs in a.m. Further per inside solar sales consultant. JOB# [id number] [facility]OSPITALDeborah
--- NOTE | 2017-07-30 03:28 | Progress Notes ---
DATE: 07/29/2017 PSYCHIATRIC PROGRESS NOTE SUBJECTIVE: Staff was spoken to. The patient is interviewed. Mood is noted to be irritable. Affect is constricted. The patient is screaming and yelling and cursing all the time. The patient has no insight into his illness. Coping skills are noted to be very poor. No side effects to the medications are noted. The patient is currently on the Depakote 125 mg. I am going to increase that to 250 mg in view of his aggressive behavior. The patient has no place to return to. PLAN: To continue the patient with the 250 mg of the Depakote and 2 mg twice a day of the Risperdal and follow the patient with the supportive therapy. JOB# [id number]
--- NOTE | 2017-07-30 04:33 | Progress Notes ---
DATE: 07/28/2017 SUBJECTIVE: The patient is awake. The patient is still in Geropsych Unit. OBJECTIVE: VITAL SIGNS: Same. CARDIOVASCULAR: S1 and S2. RESPIRATORY: Clear. ABDOMEN: Soft. Positive bowel sounds. ASSESSMENT: 1. Schizophrenia. 2. Diabetes mellitus. PLAN: Continue current management. Obtain labs in a.m. JOB# [id number]
[2017-07-30] MEDS: INSULIN ASPART SLIDING SCALE 100 UNITS/ML UNIT SUBQ SCH ×4 (06:34→21:11)
[2017-07-30 09:06] LABS: % BASOPHILS 0.2 % (0.0-2.0); % EOSINOPHILS 0.6 % (0.0-5.0); % LYMPHOCYTES 30.7 % (20.0-50.0); % NEUTROPHILS 54.5 % (40.0-80.0); HEMATOCRIT 31.8 % (41.0-60); HEMOGLOBIN 10.9 gm/dL (12-16); MEAN CELL VOLUME 89.1 fl (80-99); MEAN CORPUSCULAR HEMOGLOBIN 30.6 pg (26.0-30.0); MEAN CORPUSCULAR HGB CONC 34.3 pg (28.0-36.0); MONOCYTE ABSOLUTE 0.9 Th/cmm (0.3-1.0); NEUTROPHILE ABSOLUTE 3.6 Th/cmm (1.8-8.0); PLATELET COUNT 349 Th/cmm (150-400); RED BLOOD COUNT 3.57 Mil/cmm (4.30-5.70); RED CELL DISTRIBUTION WIDTH 14.2 % (11.5-20.0); WHITE BLOOD COUNT 6.5 Th/cmm (4.8-10.8)
[2017-07-30 09:42] LABS: ANION GAP 11.9 (7.0-16.0); BUN - UREA NITROGEN 19 mg/dL (7-25); CALCIUM SERUM 9.5 mg/dL (8.6-10.3); CARBON DIOXIDE 26.5 mEq/L (21.0-31.0); CHLORIDE 99 mEq/L (98-107); CREATININE - SERUM 0.7 mg/dL (0.7-1.3); GFR AFRICAN-AMERICAN > 60.0 ml/min (>90); GFR NON AFRICAN-AMERICAN > 60.0 ml/min; GLUCOSE 208 mg/dL (70-105); POTASSIUM SERUM 4.4 mEq/L (3.5-5.1); SODIUM SERUM 133 mEq/L (136-145)
[2017-07-30] MEDS: INSULIN HUMAN ISOPHANE (NPH) 100 UNITS/ML SUBQ SCH (11:18)
[2017-07-30] MEDS: Insulin Detemir 100 units/mL 10mL Vial SUBQ SCH (21:14)
--- NOTE | 2017-07-30 22:48 | Progress Notes ---
DATE: 07/30/2017 PSYCHIATRIC PROGRESS NOTE SUBJECTIVE: Staff was spoken to. The patient is interviewed. Mood is noted to be irritable. Affect is constricted. Insight and judgment at this time are noted to be impaired. Impulse control is noted to be limited. Coping skills are noted to be limited. The patient is pacing most of the time on the unit. No side effects to the medications are noted. The patient has been able to tolerate the medication so far. The patient is currently on Depakote, which is being given 250 mg twice a day and the patient is also on the Risperdal 2 mg twice a day. The patient is able to tolerate. ASSESSMENT: The patient is still awaiting placement. PLAN: To continue the patient with the supportive therapy and followup. JOB# [id number]
--- NOTE | 2017-07-30 22:53 | Progress Notes ---
DATE: 07/30/2017 SUBJECTIVE: The patient is awake. The patient is still in Geropsych Unit. Per psychiatry, the patient still has aggressive behavior. The patient's Depakote has been increased by Psychiatry. OBJECTIVE: VITAL SIGNS: Temperature 97.3, pulse 99, blood pressure 111/62, respiration 19, O2 sat 98% on room air. CARDIOVASCULAR: S1, S2. RESPIRATORY: Clear. ABDOMEN: Soft. Positive bowel sounds. LABORATORY DATA: Hematology: WBC 6.5, hemoglobin 10.9 and hematocrit 31.8, platelet count 349, 14% monocytes. Chemistry: Sodium 133, potassium 4.4, chloride 109, bicarbonate 26, anion gap 11, BUN 19, creatinine 0.7. GFR is more than 60, glucose 208, calcium is 9.5. MICROBIOLOGY: MRSA screening from 07/19/2017 negative. ASSESSMENT: 1. Schizophrenia, paranoid type, (acute exacerbation). 2. Hypertension. 3. Diabetes mellitus. 4. Anemia. 5. Hyponatremia. PLAN: Continue current management. We will obtain labs on Wednesday. Further recommendation per Psychiatry. JOB# [id number]
[2017-07-31] MEDS: INSULIN ASPART SLIDING SCALE 100 UNITS/ML UNIT SUBQ SCH ×4 (06:42→20:38)
[2017-07-31] MEDS: INSULIN HUMAN ISOPHANE (NPH) 100 UNITS/ML SUBQ SCH (06:43)
--- NOTE | 2017-07-31 18:49 | Progress Notes ---
DATE: 07/31/2017 PSYCHIATRIC PROGRESS NOTE SUBJECTIVE: Staff was spoken to. The patient is interviewed. Mood is noted to be irritable. Affect is constricted. The patient is a very intrusive and has been asking when he is going to be getting out. No side effects to the medications are noted at this time. Coping skills are noted to be still poor. The patient needs to be redirected. The patient is very intrusive. ASSESSMENT: The patient is still psychotic and impulsive and has no place to return to. PLAN: To continue the patient with the supportive therapy and followup. JOB# [id number]
[2017-07-31] MEDS: Insulin Detemir 100 units/mL 10mL Vial SUBQ SCH (20:38)
--- NOTE | 2017-07-31 21:51 | General Progress Note ---
Subjective - Review of Systems Service Date: 07/31/17 Subjective: [facility] Objective - Results Result Diagrams: 07/30/17 08:40 07/30/17 08:40 Recent Labs: Laboratory Last Values WBC 6.5 Th/cmm (4.8-10.8) 07/30/17 08:40 RBC 3.57 Mil/cmm (4.30-5.70) L 07/30/17 08:40 Hgb 10.9 gm/dL (12-16) L 07/30/17 08:40 Hct 31.8 % (41.0-60) L 07/30/17 08:40 MCV 89.1 fl (80-99) 07/30/17 08:40 MCH 30.6 pg (26.0-30.0) H 07/30/17 08:40 MCHC Differential 34.3 pg (28.0-36.0) 07/30/17 08:40 RDW 14.2 % (11.5-20.0) 07/30/17 08:40 Plt Count 349 Th/cmm (150-400) 07/30/17 08:40 MPV 7.0 fl 07/30/17 08:40 Neutrophils % 54.5 % (40.0-80.0) 07/30/17 08:40 Lymphocytes % 30.7 % (20.0-50.0) 07/30/17 08:40 Monocytes % 14.0 % (2.0-10.0) H 07/30/17 08:40 Eosinophils % 0.6 % (0.0-5.0) 07/30/17 08:40 Basophils % 0.2 % (0.0-2.0) 07/30/17 08:40 Sodium 133 mEq/L (136-145) L 07/30/17 08:40 Potassium 4.4 mEq/L (3.5-5.1) 07/30/17 08:40 Chloride 99 mEq/L (98-107) 07/30/17 08:40 Carbon Dioxide 26.5 mEq/L (21.0-31.0) 07/30/17 08:40 Anion Gap 11.9 (7.0-16.0) 07/30/17 08:40 BUN 19 mg/dL (7-25) 07/30/17 08:40 Creatinine 0.7 mg/dL (0.7-1.3) 07/30/17 08:40 Est GFR ( Amer) > 60.0 ml/min (>90) 07/30/17 08:40 Est GFR (Non-Af Amer) > 60.0 ml/min 07/30/17 08:40 BUN/Creatinine Ratio 27.1 07/30/17 08:40 Glucose 208 mg/dL (70-105) H 07/30/17 08:40 POC Glucose 159 MG/DL (70 - 105) H 07/31/17 05:51 Hemoglobin A1c % 11.7 % (4.0-6.0) H 07/19/17 14:50 Calcium 9.5 mg/dL (8.6-10.3) 07/30/17 08:40 Total Bilirubin 0.3 mg/dL (0.3-1.0) 07/19/17 14:50 AST 14 U/L (13-39) 07/19/17 14:50 ALT 22 U/L (7-52) 07/19/17 14:50 Alkaline Phosphatase 138 U/L (34-104) H 07/19/17 14:50 Total Protein 6.7 gm/dL (6.0-8.3) 07/19/17 14:50 Albumin 3.2 gm/dL (4.2-5.5) L 07/19/17 14:50 Globulin 3.5 gm/dL 07/19/17 14:50 Albumin/Globulin Ratio 0.9 (1.0-1.8) L 07/19/17 14:50 Triglycerides 78 mg/dL (<150) 07/19/17 14:50 Cholesterol 157 mg/dL (<200) 07/19/17 14:50 LDL Cholesterol Direct 93 mg/dL (75-193) 07/19/17 14:50 HDL Cholesterol 59 mg/dL (23-92) 07/19/17 14:50 TSH 1.15 uIU/ml (0.34-5.60) 07/19/17 14:50 Urine Source CLEAN C 07/19/17 16:37 Urine Color YELLOW 07/19/17 16:37 Urine Clarity CLEAR (CLEAR) 07/19/17 16:37 Urine pH 7.0 (4.6 - 8.0) 07/19/17 16:37 Ur Specific [place] <= 1.005 (1.005-1.030) 07/19/17 16:37 Urine Protein NEGATIVE mg/dL (NEGATIVE) 07/19/17 16:37 Urine Glucose (UA) 500 mg/dL (NEGATIVE) H 07/19/17 16:37 Urine Ketones NEGATIVE mg/dL (NEGATIVE) 07/19/17 16:37 Urine Blood NEGATIVE (NEGATIVE) 07/19/17 16:37 Urine Nitrate NEGATIVE (NEGATIVE) 07/19/17 16:37 Urine Bilirubin NEGATIVE (NEGATIVE) 07/19/17 16:37 Urine Urobilinogen 0.2 E.U./dL (0.2 - 1.0) 07/19/17 16:37 Ur Leukocyte Esterase NEGATIVE (NEGATIVE) 07/19/17 16:37 Urine RBC NONE SEEN /hpf (0-5) 07/19/17 16:37 Urine WBC NONE SEEN /hpf (0-5) 07/19/17 16:37 Ur Epithelial Cells NONE SEEN /lpf (FEW) 07/19/17 16:37 Urine Bacteria NONE SEEN /hpf (NONE SEEN) 07/19/17 16:37 Salicylates < 25.0 mg/L (30.0-100.0) L 07/19/17 14:50 Urine Opiates Screen NEGATIVE (NEGATIVE) 07/19/17 16:37 Urine Methadone Screen NEGATIVE (NEGATIVE) 07/19/17 16:37 Acetaminophen < 10.0 ug/mL (10.0-30.0) L 07/19/17 14:50 Ur Barbiturates Screen NEGATIVE (NEGATIVE) 07/19/17 16:37 Ur Tricyclics Screen NEGATIVE (NEGATIVE) 07/19/17 16:37 Ur Phencyclidine Scrn NEGATIVE (NEGATIVE) 07/19/17 16:37 Amphetamines Screen NEGATIVE (NEGATIVE) 07/19/17 16:37 U Methamphetamines Scrn NEGATIVE (NEGATIVE) 07/19/17 16:37 U Benzodiazepines Scrn POSITIVE (NEGATIVE) H 07/19/17 16:37 U Cocaine Metab Screen NEGATIVE (NEGATIVE) 07/19/17 16:37 U Cannabinoids Screen NEGATIVE (NEGATIVE) 07/19/17 16:37 Ethyl Alcohol < 10 mg/dL (0-10) 07/19/17 14:50 RPR NONREACTIVE (NONREACTIVE) 07/19/17 14:50 - Physical Exam Vitals and I&O: Vital Signs Temp 99 F 07/31/17 20:00 Pulse 102 07/31/17 20:00 Resp 18 07/31/17 20:00 BP 111/61 07/31/17 20:00 Pulse Ox 100 07/31/17 20:00 Intake & Output 07/31/17 07/31/17 08/01/17 06:59 18:59 06:59 Intake Total 480 1800 Balance 480 1800 Intake: Oral 480 1800 Other: # Voids 2 3 Active Medications: Current Medications Acetaminophen (Tylenol) 650 mg PO Q4HR PRN PRN Reason: GENERAL DISCOMFORT Stop: 09/17/17 20:24 Last Admin: 07/31/17 15:06 Dose: 650 mg Al Hydrox/Mg Hydrox/Simethicone (Maalox) 30 ml PO Q4H PRN PRN Reason: Heartburn Stop: 09/20/17 07:14 Benztropine Mesylate (Cogentin) 0.5 mg PO BID CHRISSY Stop: 09/24/17 16:59 Last Admin: 07/31/17 16:42 Dose: 0.5 mg Diphenhydramine HCl (Benadryl) 50 mg PO Q24H PRN PRN Reason: Insomnia Stop: 09/19/17 19:31 Divalproex Sodium (Depakote Dr) 250 mg PO Q12HR CHRISSY; Protocol Stop: 09/27/17 20:59 Last Admin: 07/31/17 20:06 Dose: 250 mg Insulin Aspart (Novolog Insulin Sliding Scale) 0 units SUBQ ACHS CHRISSY; Protocol Stop: 09/19/17 07:29 Last Admin: 07/31/17 20:38 Dose: 2 units Insulin Detemir (Levemir Insulin) 14 units SUBQ HS CHRISSY; Protocol Stop: 09/23/17 20:59 Last Admin: 07/31/17 20:38 Dose: 14 units Insulin Human NPH (Novolin N) 5 units SUBQ QDAC CHRISSY; Protocol Stop: 09/18/17 07:29 Last Admin: 07/31/17 06:43 Dose: 5 units Lorazepam (Ativan) 0.5 mg PO Q6HR PRN; Protocol PRN Reason: Agitation Stop: 09/18/17 06:20 Last Admin: 07/31/17 20:06 Dose: 0.5 mg Losartan Potassium (Cozaar) 50 mg PO DAILY [facility] Stop: 09/18/17 08:59 Last Admin: 07/31/17 08:50 Dose: 50 mg Magnesium Hydroxide (Milk Of Magnesia) 30 ml PO Q24H PRN PRN Reason: Constipation Stop: 09/17/17 20:24 Metformin HCl (Glucophage) 500 mg PO BID CHRISSY Stop: 09/18/17 08:59 Last Admin: 07/31/17 16:42 Dose: 500 mg Risperidone (Risperdal) 2 mg PO BID [facility]; Protocol Stop: 09/28/17 08:59 Last Admin: 07/31/17 16:42 Dose: 2 mg General: No acute distress Cardiovascular: Regular rate, Normal S1, Normal S2 Lungs: Clear to auscultation Abdomen: Bowel sounds, Soft Assessment/Plan - Problem List Patient Problems: All Active Problems INCREASED AGITATION; THREATENING BEHAVOI (Acute) - Assessment Assessment: Acute Psychosis DM HTN - Plan Plan: Continue current medications Further per Psychiatry Nutritional Asmnt/Malnutr-PDOC - Dietary Evaluation Malnutrition Findings (Please click <Entered> for more info): Nutritional Asmnt/Malnutrition Start: 07/22/17 15: 13 Text: Status: Complete Freq: Protocol: Document 07/22/17 15:13 LCHENG (Rec: 07/22/17 15:36 [email or web address]) Nutritional Asmnt/Malnutrition Patient General Information Nutritional Screening Moderate Risk Diagnosis psychosis Pertinent Medical Hx/Surgical Hx HTN, dyslipidemia, depression, bipolar disorder Subjective Information Pt seen eating in room at time of visit. Per STAFF READINESS OFFICER, pt always feel hungry, possible d/t mental status. Per EMR, PO intake 100% of meals Current Diet Order/ Nutrition [facility] Pertinent Medications novolog, levemir, novolin, glucophage Pertinent Labs 07/22 POC POC 163-275 07/21 glucose 131, POC 91-352 07/19 Cr 0.6, Glucose 79, A1c 11.7 POC 305 Nutritional Hx/Data Height 1.85 m Height (Calculated Centimeters) 185.4 Current Weight (lbs) 70.307 kg Weight (Calculated Kilograms) 70.3 Weight (Calculated Grams) 93105.8 [place] Body Weight 184 % [place] Body Weight 84 Body Mass Index (BMI) 20.4 Weight Status Approriate GI Symptoms GI Symptoms None Last BM 07/21 Difficult in: None Skin Integrity/Comment: multiple old scar, open on the left inner thigh Current %PO Good (75-100%) Estimated Nutritional Goals BEE in Kcals: Using Current wt Calories/Kcals/Kg 25-30 Kcals Calculated 6929-2644 Protein: Using Current wt Protein g/k-1.2 Protein Calculated 70-84 Fluid: ml 1750-2100ml (1ml/kcal) Nutritional Problem 1. Problem Problem altered nutrition related labs Etiology hx of DM Signs/Symptoms: glucose 131, POC 91-352, A1c 11.7 Malnutrition Alert Is there a minimum of two criteria No selected? Query Text:Check all the applicable criteria. A minimum of two criteria are recommended for diagnosis of either severe or non-severe malnutrition. Malnutrition Related to Morbid Obesity Malnutrition related to morbid obesity No Intervention/Recommendation Comments 1. Continue with CCHO 60gm, NASH, NCS diet as ordered. MD to adjust insulin for optimal glycemic control. 2. Monitor PO intake, wt, labs and skin integrity 3. F/U as low risk in 7 days. 07/29 Expected Outcomes/Goals Expected Outcomes/Goals 1. PO intake to meet at least 75% of nutritional needs. 2. Wt stability, skin integrity to improve, labs to approach WNL.
[2017-08-01] MEDS: INSULIN ASPART SLIDING SCALE 100 UNITS/ML UNIT SUBQ SCH ×4 (06:48→20:06)
[2017-08-01] MEDS: INSULIN HUMAN ISOPHANE (NPH) 100 UNITS/ML SUBQ SCH (06:49)
--- NOTE | 2017-08-01 13:39 | Progress Notes ---
DATE: 08/01/2017 PSYCHIATRIC PROGRESS NOTE SUBJECTIVE: Staff was spoken to. The patient is interviewed. Mood is noted to be irritable. Affect is constricted. Coping skills are noted to be still poor. Paranoia is noted, but the patient's command hallucinations have been going down. The patient has been pacing on the unit. No side effects to the medications are noted. Gait is noted to be a major issue and the patient does not seem to have much of a control. The patient, however, has been able to tolerate Risperdal and Depakote. ASSESSMENT: The patient is stabilizing. PLAN: To continue the patient with supportive therapy and discharge the patient whenever the patient whenever the placement is available. [facility]# [id number]
[2017-08-01] MEDS: Insulin Detemir 100 units/mL 10mL Vial SUBQ SCH (20:07)
--- NOTE | 2017-08-01 23:47 | Progress Notes ---
DATE: 08/01/2017 SUBJECTIVE: The patient is still in Geropsych Unit. Per evaluation by Psychiatry, the patient is still having hallucinations. PHYSICAL EXAMINATION: VITAL SIGNS: Temperature is 97, pulse of 78, blood pressure 120/79, respirations 20, 90% on room air. CARDIOVASCULAR: S1, S2. RESPIRATORY: Clear. ABDOMEN: Soft. Positive bowel sounds. LABORATORY DATA: No labs for today. ASSESSMENT: 1. Schizophrenia, paranoid type, (acute exacerbation). 2. Hypertension. 3. Diabetes mellitus. PLAN: Continue medication. We will obtain labs tomorrow. Further recommendation as per consults. JOB# [id number]
[2017-08-02] MEDS: INSULIN ASPART SLIDING SCALE 100 UNITS/ML UNIT SUBQ SCH ×2 (06:34→11:57)
[2017-08-02] MEDS: INSULIN HUMAN ISOPHANE (NPH) 100 UNITS/ML SUBQ SCH (06:35)
[2017-08-02 09:43] LABS: % BASOPHILS 0.3 % (0.0-2.0); % EOSINOPHILS 0.7 % (0.0-5.0); HEMATOCRIT 30.1 % (41.0-60); HEMOGLOBIN 10.1 gm/dL (12-16); LYMPHOCYTE ABSOLUTE 1.5 Th/cmm (1.5-3.0); MEAN CORPUSCULAR HEMOGLOBIN 29.7 pg (26.0-30.0); MEAN CORPUSCULAR HGB CONC 33.4 pg (28.0-36.0); MEAN PLATELET VOLUME 6.9 fl; MONOCYTE ABSOLUTE 0.7 Th/cmm (0.3-1.0); NEUTROPHILE ABSOLUTE 3.3 Th/cmm (1.8-8.0); PLATELET COUNT 297 Th/cmm (150-400); RED BLOOD COUNT 3.39 Mil/cmm (4.30-5.70); RED CELL DISTRIBUTION WIDTH 14.5 % (11.5-20.0); WHITE BLOOD COUNT 5.5 Th/cmm (4.8-10.8)
[2017-08-02 09:57] LABS: ANION GAP 9.5 (7.0-16.0); BUN - UREA NITROGEN 18 mg/dL (7-25); CALCIUM SERUM 9.2 mg/dL (8.6-10.3); CARBON DIOXIDE 29.6 mEq/L (21.0-31.0); CHLORIDE 98 mEq/L (98-107); CREATININE - SERUM 0.6 mg/dL (0.7-1.3); GFR AFRICAN-AMERICAN > 60.0 ml/min (>90); GFR NON AFRICAN-AMERICAN > 60.0 ml/min; GLUCOSE 192 mg/dL (70-105); POTASSIUM SERUM 4.1 mEq/L (3.5-5.1); SODIUM SERUM 133 mEq/L (136-145)
--- NOTE | 2017-08-02 21:08 | Discharge Summary ---
DATE OF DISCHARGE: 08/02/2017 IDENTIFYING DATA: The patient is a 62-year-old -[place] male, admitted here for acute agitation and paranoia. CHIEF COMPLAINT: "I need to go to a board and care." HISTORY OF PRESENT ILLNESS: Please refer to the 07/20/[address] Blackman who was covering for me. The patient has been seen by Dr. Watson for the physical examination and is noted to be significant for diabetes mellitus, hypertension, and dyslipidemia. DIAGNOSES AT THE TIME OF ADMISSION: AXIS I: Schizophrenia, chronic paranoid type with acute exacerbation. AXIS II: None. AXIS III: As per the primary care physician. HOSPITAL COURSE AND RESPONSE TO TREATMENT: The patient has been observed on inpatient unit and provided with supportive psychotherapy. The patient has been given the benztropine 1 mg twice a day for the side effects from the medication. The patient also has been placed on the valproic acid 250 mg twice a day and the patient has been placed on the Risperdal 2 mg twice a day and with these medications, the patient was observed and the patient's psychosis started to resolve. The mood swings came under control and the patient was discharged on 08/02/2017 with the recommendation that he is going to be seeking treatment on an outpatient basis. MENTAL STATUS EXAMINATION AT THE TIME OF DISCHARGE: The patient's mood is noted to be anxious. Affect is appropriate. Not suicidal or homicidal. Insight and judgment are noted to be fair. Impulse control is also noted to be fair. ASSESSMENT: AXIS I: Schizophrenia, chronic paranoid type. AXIS II: None. AXIS III: Hypertension, diabetes mellitus, and arthritis. AFTERCARE PLAN: The patient is discharged to the senior living facility for further followup. JOB# [id number]
== END 2017-08-02 13:45 | DRG 885 ==
LOC: ER 14:23 → GERO 17:24
PROVIDERS: ADMIT Psychiatry & Neurology Psychiatry; ATTEND Psychiatry & Neurology Psychiatry
DX: F20.0 Paranoid schizophrenia (principal); E11.65 Type 2 diabetes mellitus with hyperglycemia; E87.1 Hypo-osmolality and hyponatremia; D64.9 Anemia, unspecified; I10 Essential (primary) hypertension; E78.5 Hyperlipidemia, unspecified; M19.90 Unspecified osteoarthritis, unspecified site; F31.9 Bipolar disorder, unspecified; E66.9 Obesity, unspecified; Z82.49 Family history of ischemic heart disease and other diseases of the circulatory system; Z68.20 Body mass index [BMI] 20.0-20.9, adult
CPT/HCPCS: 36415-UA; 80048-TC; 80053-TC; 80061-TC; 80307; 80320-TC; 80329-TC; 81001-TC; 82947-TC; 82948-90; 83036-90; 84443-TC; 85025-TC; 86592-TC; 90899; 93005; G0410; J1200; J1630; J1815; J2060; Z7610